=== PATIENT | male | born 1975 | race Caucasian/White ===

== ENCOUNTER 2019-01-27 07:08 | Day surgery (SDC) | payer OTHER ==
[~2019-01-27] VITALS: Ht 177.8 cm; Wt 112.5 kg
[~2019-01-27 07:08] MED LIST: PRINZIDE 12.5 M1 TAB PO
[2019-01-27 07:32] VITALS: BP 158/105; PULSE 79; TEMP 97
[2019-01-27 08:40] VITALS: BP 125/76; PULSE 69; TEMP 97.6
--- NOTE | 2019-01-27 08:40 | NUR ---
Patient brought back to [facility] via cart. Ambulated to chair without difficulty. Placed on monitors, vital signs stable. at bedside. Denies any pain or nausea. Report recieved from [facility] nurse Rocha RN. Requesting orange juice, coke, and a muffin. Will continue to monitor.
[2019-01-27 08:55] VITALS: BP 122/82; PULSE 68
--- NOTE | 2019-01-27 08:55 | NUR ---
Patient states he is feeling well. Tolerating food and drink without any difficulty. Will continue to monitor.
[2019-01-27 09:10] VITALS: BP 123/85; PULSE 62
--- NOTE | 2019-01-27 09:10 | NUR ---
Patient is doing well at this time. Awaiting Dr. Ambrocio to speak with patient. Will continue to monitor.
--- NOTE | 2019-01-27 09:39 | NUR ---
Discharge instructions reviwed with patient and . Verbalized understanding. Patient brought down to lobby via wheel chair. To be driven home by .
== END 2019-01-27 09:39 | disposition home or self-care (01) ==
LOC: SDCO 07:08
DX: D12.2 Benign neoplasm of ascending colon (principal); R19.7 Diarrhea, unspecified; K29.80 Duodenitis without bleeding; K31.89 Other diseases of stomach and duodenum; Z83.71 Family history of colonic polyps; Z91.030 Bee allergy status; E66.9 Obesity, unspecified; Z68.36 Body mass index [BMI] 36.0-36.9, adult
CPT/HCPCS: J2250; J2405; J3010; J7030

== ENCOUNTER → 2019-02-16 | Outpatient (CLI) | payer OTHER | LOC: ZCOL.LAB 16:02 | DX: Z01.812 Encounter for preprocedural laboratory examination (principal); Z86.14 Personal history of Methicillin resistant Staphylococcus aureus infection ==

== ENCOUNTER → 2020-08-16 | Outpatient (CLI) | payer OTHER | LOC: ZCOL.LAB 12:00 → SDCO 08-21 13:00 → EDSTATUS 08-21 13:00 | DX: A63.0 Anogenital (venereal) warts (principal); Z20.822 Contact with and (suspected) exposure to COVID-19 ==